=== PATIENT | male | born 1995 | race Caucasian/White ===

== ENCOUNTER → 2019-12-03 07:42 | Outpatient (BNVA) | payer MEDICAID, SELFPAY | PROVIDERS: Visit Provider Nurse Practitioner Psychiatric/Mental Health | DX: F33.1 Major depressive disorder, recurrent, moderate (principal); F84.5 Asperger's syndrome; F78 Other intellectual disabilities | CPT/HCPCS: 99213 ==

== ENCOUNTER → 2020-02-23 07:32 | Outpatient (BNVA) | payer MEDICAID, SELFPAY | PROVIDERS: Visit Provider Nurse Practitioner Psychiatric/Mental Health | DX: F33.1 Major depressive disorder, recurrent, moderate (principal); F84.5 Asperger's syndrome; F78 Other intellectual disabilities | CPT/HCPCS: 99213 ==

== ENCOUNTER → 2020-05-17 07:48 | Outpatient (BNVA) | payer MEDICAID, SELFPAY | PROVIDERS: Visit Provider Nurse Practitioner Psychiatric/Mental Health | DX: F33.1 Major depressive disorder, recurrent, moderate (principal); F84.5 Asperger's syndrome; F78 Other intellectual disabilities | CPT/HCPCS: 99213 ==

== ENCOUNTER → 2020-09-06 07:50 | Outpatient (BNVA) | payer MEDICAID, SELFPAY | PROVIDERS: Visit Provider Nurse Practitioner Psychiatric/Mental Health | DX: F33.1 Major depressive disorder, recurrent, moderate (principal); F84.5 Asperger's syndrome; F78 Other intellectual disabilities | CPT/HCPCS: 99204 ==

== ENCOUNTER → 2020-10-20 07:30 | Outpatient (BNVA) | payer MEDICAID, SELFPAY | PROVIDERS: Visit Provider Nurse Practitioner Psychiatric/Mental Health | DX: F33.1 Major depressive disorder, recurrent, moderate (principal); F84.5 Asperger's syndrome; F78 Other intellectual disabilities | CPT/HCPCS: 99213 ==

== ENCOUNTER 2020-11-16 17:30 | Emergency (ER) | payer MEDICAID, SELFPAY ==
[2020-11-16 17:41] VITALS: BP 134/79; PULSE 95; RESP 16; TEMP 36.8; O2SAT 96; BMI 34.0
--- NOTE | 2020-11-16 17:48 | USR_ITS ---
PROCEDURE INFORMATION: Exam: US Scrotum Exam date and time: 11/16/2020 6:19 PM Age: 25 years old Clinical indication: Scrotum pain; Additional info: Pain left testicle TECHNIQUE: Imaging protocol: Real-time ultrasound of the scrotum and contents with color Doppler and image documentation. COMPARISON: No relevant prior studies available. FINDINGS: Right testicle: Normal. No mass. No torsion. Normal vascular flow. 4.9 cm x 2.4 x 3 cm Left testicle: Normal. No mass. No torsion. Normal vascular flow. 2.4 cm x 2.9 x 4.4 cm. Epididymides: Left 0.7 cm x 1.8 cm x 1 cm. Left is large , and heterogenous with hypervascular flow. these findings are consistent with epididymitis. The epididymal head measures 7.5 mm x 10.4 mm x 18.2 mm. Multiple epididymal head cyst. The largest cyst measuring 3.5 mm x 4.2 mm x 4.2 mm. Right epididymis: Head measures 0.9 cm x 1.3 cm x 1.9 cm. A large epididymal cyst is seen 0.6 cm x 1.0 cm x 0.59 cm. Scrotum: Normal. US/US scrotum [id number] IMPRESSION: 1. Left side epididymitis. 2. Negative for intrinsic testicular abnormalities 3. Bilateral epididymal head cysts. 4. Negative right epididymis.
[2020-11-16 18:06] VITALS: BP 132/88; PULSE 96; RESP 16; O2SAT 100
[2020-11-16 18:24] LABS: Add Urine Culture? Yes; Add Urine Microscopic? YES; Bacteria Urine 3+ /hpf; Bilirubin Urine Neg (Negative); Blood Urine 2+ (Negative); Glucose Urine UA Norm (Normal); Ketones Urine Negative (Negative); Leukocyte Esterase Urine 2+ (Negative); Nitrate Urine Positive (Negative); Protein Urine Neg (Negative); RBC Urine 0-4 /hpf (0-2); Squamous Epithelial Cell Urine 0-4 /hpf (0-5); Urine Appearance Clear (CLEAR); Urine Color Yellow (Yellow); Urobilinogen Urine Norm (Negative); WBC Urine 25-40 /hpf (0-5); pH Urine 6 (5-7)
--- NOTE | 2020-11-16 18:27 | W.ED.MALEGU ---
HPI - Male Genitourinary General: Chief complaint: Urogenital-Male Stated complaint: GROIN ISSUES Time Seen by Provider: 11/16/20 17:48 Source: patient Mode of arrival: ambulatory Limitations: no limitations History of Present Illness: HPI Narrative: 25-year-old male states he has had left testicle pain since Friday. States he has had swelling along with dysuria. Patient was seen in clinic and sent here to rule out torsion. He states that pain is much worse with touch and rates his pain currently a 6 out of 10. Denies any fever. Denies any vomiting or diarrhea. Associated symptoms: Reports dysuria; Deny nausea or vomiting Review of Systems Const: Denies: fever(s), chills, body aches or change in appetite Eyes: Denies: blurry vision or eye discomfort ENMT: Denies: throat pain or dental pain Card: Denies: chest pain Resp: Denies: dyspnea GI: Denies: abdominal pain, nausea, vomiting or diarrhea : Reports: dysuria and testicular pain Musc: Denies: neck pain or back pain Skin/Breast: Denies: rash Neuro: Denies: headache(s) Psych: Denies: depression Jono/Lymph: Denies: easy bruising All/Imm: Denies: urticaria PFSH ED PFSH: Medical History (Updated 11/16/20 @ 18:25 by Iker Matta MD) Asperger syndrome Intellectual functioning disability Major depressive disorder, recurrent episode, moderate with anxious distress Social History (Updated 09/09/19 @ 08:53 by Yelena Rivera RN) Smoking and tobacco status: never smoked Physical Exam Const: COMMON NORMALS: no acute distress, patient oriented x3 and healthy appearing HENMT: COMMON NORMALS: normocephalic and atraumatic HEAD & SCALP: normocephalic and atraumatic Eye: COMMON NORMALS: Equal, round and reactive pupils present and EOMs intact bilaterally PUPIL: Yes Equal, round and reactive pupils present Neck/C-Spine: COMMON NORMALS: full ROM and supple Chest: COMMONS NORMALS: normal inspection of the chest and normal palpation of entire chest wall Resp: COMMON NORMALS: normal respiratory effort, No retractions, No use of accessory muscles and clear to auscultation bilaterally AUSCULTATION: clear to auscultation bilaterally Cardio: COMMON NORMALS: regular rate, regular rhythm and No murmurs present (Cardio) RATE: regular rate RHYTHM: regular rhythm GI: COMMON NORMALS: Normal to inspection, nondistended, normoactive bowel sounds present, Soft to palpation, non-tender and no masses PALPATION: Yes Soft to palpation : OTHER: Tenderness to left epididymis with swelling no signs of torsion Extremity: COMMON NORMALS: normal to inspection and full ROM Neuro: COMMON NORMALS: patient oriented x3, moves all extremities and no focal motor deficits Psych: COMMON NORMALS: mental status grossly normal, Normal thought process present and cooperative THOUGHT PROCESS: Normal thought process present Skin: COMMON NORMALS: no rashes or lesions noted and no wounds GENERAL SKIN EXAM: no rashes or lesions noted Course Vital Signs: Vital signs: Vital Signs Temperature 98.2 F 11/16/20 17:41 Pulse Rate 96 11/16/20 18:06 Respiratory Rate 16 11/16/20 18:06 Blood Pressure 132/88 11/16/20 18:06 Pulse Oximetry 100 11/16/20 18:06 MDM - Male MDM Narrative: Medical decision making narrative: Patient presents with epididymitis. Patient given Rocephin here and will prescribe doxycycline for home. Will culture his urine. He is to follow-up with Dr. Crabtree and return if worsening. Lab Data: Labs: Lab Results 11/16/20 Range/Units 18:02 Urine Color Yellow (Yellow) Urine Appearance Clear (CLEAR) Urine pH 6 (5-7) Ur Specific Gravit y 1.010 (1.005-1.030) Urine Protein Neg (Negative) Urine Glucose (UA) Norm (Normal) Urine Ketones Negative (Negative) Urine Blood 2+ H (Negative) Urine Nitrate Positive H (Negative) Urine Bilirubin Neg (Negative) Urine Urobilinogen Norm (Negative) mg/dL Ur Leukocyte Clarita ase 2+ H (Negative) Urine RBC 0-4 H (0-2) /hpf Urine WBC 25-40 H (0-5) /hpf Ur Squamous Epith Cells 0-4 H (0-5) /hpf Amorphous Sediment Not Reportable Urine Bacteria 3+ H (NONE) /hpf Imaging Data: US: Attestation: I personally reviewed and interpreted this imaging study as follows: Radiologist's impression: Epididymitis to left testicle Discharge Plan Discharge Patient Disposition: Home Clinical Impression: Epididymitis Condition: Stable Prescriptions: New hydrocodone-acetaminophen 5-325 mg tablet 1 tab PO Q6H PRN (Reason: pain) Qty: 14 RF: 0 ondansetron 4 mg tablet,disintegrating 4 mg PO Q6H PRN (Reason: nausea and vomiting) Qty: 14 RF: 0 doxycycline hyclate 100 mg tablet 100 mg PO BID 14 Days Qty: 28 RF: 0 No Action bupropion HCl [Wellbutrin SR] 200 mg tablet sustained-release 12 hr 200 mg PO QAM Qty: 30 RF: 3 trazodone 50 mg tablet 50 mg PO BEDTIME PRN (Reason: sleep) RF: 0 Discharge Orders: Discharge ED (Routine); Ordered 11/16/20 Ordered By: Iker Matta Discharge Diet: Advance as tolerated Discharge Activity: Resume usual activity Patient Instructions: Epididymitis (ED), Opioid Safety Coding Level of Care Code ED [employer] for Ganesh Guy
[2020-11-16] MEDS: HYDROcodone-acetaminophen 5-325 mg Tablet 1 TAB PO (18:36)
--- NOTE | 2020-11-20 11:55 | DCPLANNER ---
senior technical manager had message to schedule a follow up appointment for patient with Dr. Crabtree for epididimytis. senior technical manager called the office of Dr. Crabtree, spoke with Alice, gave clinic patients information. senior technical manager was told that patients information would be printed and reviewed. Clinic will call patient with appointment information.
--- NOTE | 2020-11-24 14:19 | DCPLANNER ---
Patient has a follow up appointment scheduled for Sunday, November 29, [address] at 2:[address] Crabtree. Clinic will contact patient with appointment information.
--- NOTE | 2021-02-21 07:19 | DCPLANNER ---
Patient had a follow up appointment scheduled for 11.29.[address] Crabtree - patient did attend appointment.
== END 2020-11-16 18:45 | disposition home or self-care (01) ==
PROVIDERS: Family Medicine; Emergency Provider Emergency Medicine
DX: N45.1 Epididymitis (principal); F84.5 Asperger's syndrome
CPT/HCPCS: 76870; 81001; 87077; 87086; 87186; 96372; 99283; J0696

== ENCOUNTER → 2020-12-08 07:30 | Outpatient (BNVA) | payer MEDICAID, SELFPAY | PROVIDERS: PCP Family Medicine; Visit Provider Nurse Practitioner Psychiatric/Mental Health | DX: F33.1 Major depressive disorder, recurrent, moderate (principal); F84.5 Asperger's syndrome; F78 Other intellectual disabilities | CPT/HCPCS: 90832; 90834; 99214 ==

== ENCOUNTER → 2021-01-10 07:21 | Outpatient (BNVA) | payer MEDICAID, SELFPAY | PROVIDERS: PCP Family Medicine; Visit Provider Nurse Practitioner Psychiatric/Mental Health | DX: F33.1 Major depressive disorder, recurrent, moderate (principal); F84.5 Asperger's syndrome; F78 Other intellectual disabilities | CPT/HCPCS: 99214 ==

== ENCOUNTER → 2021-02-14 07:07 | Outpatient (BNVA) | payer MEDICAID, SELFPAY | PROVIDERS: PCP Family Medicine; Visit Provider Nurse Practitioner Psychiatric/Mental Health | DX: F33.1 Major depressive disorder, recurrent, moderate (principal); F84.5 Asperger's syndrome; F78 Other intellectual disabilities | CPT/HCPCS: 99214 ==

== ENCOUNTER → 2021-02-16 07:48 | Outpatient (BNVA) | payer MEDICAID, SELFPAY | PROVIDERS: PCP Family Medicine; Visit Provider Nurse Practitioner Psychiatric/Mental Health | DX: Z79.899 Other long term (current) drug therapy (principal) | CPT/HCPCS: 80053; 80061; 83036 ==

== ENCOUNTER → 2021-03-14 07:45 | Outpatient (BNVA) | payer MEDICAID, SELFPAY | PROVIDERS: PCP Family Medicine; Visit Provider Nurse Practitioner Psychiatric/Mental Health | DX: F33.1 Major depressive disorder, recurrent, moderate (principal); F84.5 Asperger's syndrome; F78 Other intellectual disabilities | CPT/HCPCS: 99214 ==

== ENCOUNTER → 2021-04-25 07:37 | Outpatient (BNVA) | payer MEDICAID, SELFPAY | PROVIDERS: PCP Family Medicine; Visit Provider Nurse Practitioner Psychiatric/Mental Health | DX: F33.1 Major depressive disorder, recurrent, moderate (principal); F84.5 Asperger's syndrome; F78 Other intellectual disabilities | CPT/HCPCS: 99214 ==

== ENCOUNTER → 2021-07-18 07:30 | Outpatient (BNVA) | payer MEDICAID, SELFPAY | PROVIDERS: PCP Family Medicine; Visit Provider Nurse Practitioner Psychiatric/Mental Health | DX: F33.1 Major depressive disorder, recurrent, moderate (principal); F84.5 Asperger's syndrome | CPT/HCPCS: 99214 ==

== ENCOUNTER → 2021-08-15 08:03 | Outpatient (BNVA) | payer MEDICAID, SELFPAY | PROVIDERS: PCP Family Medicine; Visit Provider Nurse Practitioner Psychiatric/Mental Health | DX: F33.1 Major depressive disorder, recurrent, moderate (principal); F84.5 Asperger's syndrome | CPT/HCPCS: 99214 ==

== ENCOUNTER → 2021-10-10 08:13 | Outpatient (BNVA) | payer MEDICAID, SELFPAY | PROVIDERS: PCP Family Medicine; Visit Provider Nurse Practitioner Psychiatric/Mental Health | DX: F33.1 Major depressive disorder, recurrent, moderate (principal); F84.5 Asperger's syndrome | CPT/HCPCS: 99214 ==

== ENCOUNTER → 2022-01-09 08:16 | Outpatient (BNVA) | payer MEDICAID, SELFPAY | PROVIDERS: PCP Family Medicine; Visit Provider Nurse Practitioner Psychiatric/Mental Health | DX: F33.1 Major depressive disorder, recurrent, moderate (principal); F84.5 Asperger's syndrome | CPT/HCPCS: 99214 ==

== ENCOUNTER → 2023-02-05 09:28 | Outpatient (BNVA) | payer MEDICAID, SELFPAY | PROVIDERS: PCP Family Medicine; Visit Provider Nurse Practitioner Psychiatric/Mental Health | DX: F33.1 Major depressive disorder, recurrent, moderate (principal); F84.5 Asperger's syndrome; Z79.899 Other long term (current) drug therapy | CPT/HCPCS: 80053; 80061; 83036 ==

== ENCOUNTER → 2024-01-14 09:04 | Outpatient (BNVA) | payer OTHER, SELFPAY | PROVIDERS: PCP Family Medicine; Visit Provider Nurse Practitioner Psychiatric/Mental Health | DX: F33.1 Major depressive disorder, recurrent, moderate (principal); Z79.899 Other long term (current) drug therapy; F84.5 Asperger's syndrome | CPT/HCPCS: 80053; 80061; 83036 ==

== ENCOUNTER → 2025-01-05 08:57 | Outpatient (BNVA) | payer OTHER, SELFPAY | PROVIDERS: PCP Family Medicine; Visit Provider Nurse Practitioner Psychiatric/Mental Health | DX: Z79.899 Other long term (current) drug therapy (principal) | CPT/HCPCS: 80053; 80061; 83036 ==